=== PATIENT | male | born 1955 | race Caucasian/White ===

== ENCOUNTER 2019-04-18 15:38 | Emergency (ER) | payer OTHER ==
[~2019-04-18] VITALS: Ht 180.3 cm; Wt 68.0 kg
[2019-04-18] MEDS ORDERED: NORCO 5-325 TA1 EAC1 PO (19:00)
[2019-04-18] MEDS ORDERED: KEFLEX500 M1 PO (19:00)
[2019-04-18 19:08] VITALS: BP 135/85
== END 2019-04-18 19:09 | disposition still patient (30) ==
LOC: M.ERS 15:38
DX: S01.21XA Laceration without foreign body of nose, initial encounter (principal); S01.81XA Laceration without foreign body of other part of head, initial encounter; W22.8XXA Striking against or struck by other objects, initial encounter; Y93.89 Activity, other specified; Y92.89 Other specified places as the place of occurrence of the external cause; Y99.8 Other external cause status